=== PATIENT | female | born 1990 | race Asian ===

== ENCOUNTER 2018-11-01 16:42 | Emergency (ER) | payer OTHER ==
[2018-11-01] MEDS: DIPHENHYDRAMINE 2.5 MG/ML 5ML CUP PO (19:27)
[2018-11-01] MEDS: DEXAMETHASONE 10 MG/ML 1 ML INJ PO (19:27)
== END 2018-11-01 20:14 | disposition home or self-care (01) ==
LOC: FTE 16:42
DX: L50.0 Allergic urticaria (principal)
CPT/HCPCS: 99283; J1100